=== PATIENT | female | born 1960 | race American Indian/Alaskan Native ===

== ENCOUNTER 2024-01-14 14:30 | Outpatient (RCR) | payer MEDICAID, SELFPAY ==
--- NOTE | 2023-12-25 15:11 | PT.OIERPT ---
PT OP Initial Eval Patient Information Outpatient Physical Therapy Treatment Date: 12/25/23 Visit Reasons: Pain in Right shoulder Medical Diagnosis: Right Shoulder Impingement Syndrome Treatment Dx #1: Right Shoulder Pain Treatment Dx #2: Right Shoulder Mobility Deficits Start of Care: 12/25/23 Smoking Status Smoking Status: Never smoker Initial Assessment Subjective: Pt is a 63 y/o female reports of chronic right shoulder pain (6/10) worsening in the past 6 months. Pt had some repair done by Dr Guajardo ~ 10 years ago after her injury. Most recent MRI negative. Pt has limitation with overhead motions, lifting, chores, self care, cooking, cleaning, and performing recreational activities Objective: Right Shoulder AROM Flexion: 140 deg Abduction: 150 deg External Rotation: 80 deg Internal Rotation: 60 deg Right Shoulder MMTs: grossly 3/5 Right Scapula MMTs: grossly 3/5 Special Test (+) aden-jonatan Assessment: Pt demonstrate right shoulder pain with mobility deficits consistent with impingement syndrome leading to difficulty with ADLs. 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 1) Increase right shoulder AROM WNL in 6 wks to be able to perform overhead motions 2) Increase right shoulder MMTs grossly to 4/5 in 6 wks to be able to perform recreational activities 3) Decrease shoulder pain to 2/10 in 6 wks to be able to perform lifting activities 4) Increase scapula MMTs grossly to 4-/5 in 6 wks to be able to perform self care activities 5) Indep with HEP Treatment Plan 1) Manual Therapy 2) Therapeutic Activities 3) Therapeutic Exercises 4) Modalities (ice, heat) Frequency and Duration: 2 x wk for 6 wks Certification Dates: 12/25/23 to 03/26/24 Procedure Charges OP PT Eval Mod Complex 30 minutes: Yes
--- NOTE | 2024-01-01 08:43 | PT.ODAYNRPT ---
PT Outpatient Daily Note OP Daily Note Outpatient Physical Therapy Treatment Date: 01/01/24 Visit Reasons: Pain in Right shoulder Subjective: Pt c/o shoulder pain and tightness Objective: Please see flow sheet for ther ex list. Assessment: Poor activity tolerance due to pt pain response. Plan: Assess response to treatment. Length of Time (minutes) of Treatment: 30 Minutes Procedure Charges Therapeutic Exercise 30 minutes: Yes
--- NOTE | 2024-01-07 14:32 | PT.ODAYNRPT ---
PT Outpatient Daily Note OP Daily Note Outpatient Physical Therapy Treatment Date: 01/07/24 Visit Reasons: Pain in Right shoulder Subjective: Pt's shoulder is fatigue and sore from previous session. Pt mention she continues to have weakness and pain in her shoulder blade Objective: Please see flow chart for list of ther ex performed Assessment: improving with shoulder AAROM in flexion and scaption direction. Post heat helped with shoulder pain Plan: Continue with PT Length of Time (minutes) of Treatment: 30 Minutes Procedure Charges Therapeutic Exercise 30 minutes: Yes
--- NOTE | 2024-01-10 14:35 | PT.ODAYNRPT ---
PT Outpatient Daily Note OP Daily Note Outpatient Physical Therapy Treatment Date: 01/10/24 Visit Reasons: Pain in Right shoulder Subjective: Pt's shoulder still hurt. Pt is having a bad day today due to other issues. Objective: Please see flow chart for list of ther ex performed Assessment: no change in shoulder pain post PT session. Post heat helped with pain. Plan: Continue with PT Length of Time (minutes) of Treatment: 30 Minutes Procedure Charges Therapeutic Exercise 30 minutes: Yes
--- NOTE | 2024-01-14 15:05 | PT.ODAYNRPT ---
PT Outpatient Daily Note OP Daily Note Outpatient Physical Therapy Treatment Date: 01/14/24 Visit Reasons: Pain in Right shoulder Subjective: Pt's shoulder is very sore and pain is about the same. No change in overall symptoms since last session Objective: Please see flow chart for list of ther ex performed Assessment: minimal change in pain and ROM post PT session. Plan: Continue with PT Length of Time (minutes) of Treatment: 30 Minutes Procedure Charges Therapeutic Exercise 30 minutes: Yes
== END 2024-01-19 23:59 | disposition home or self-care (01) ==
LOC: CPTX 14:30
PROVIDERS: PCP Orthopaedic Surgery; Referring Provider Orthopaedic Surgery; Visit Provider Orthopaedic Surgery
DX: M25.511 Pain in right shoulder (principal); G89.29 Other chronic pain
CPT/HCPCS: 97110; 97162

== ENCOUNTER 2024-01-24 10:00 | Outpatient (RCR) | payer MEDICAID, SELFPAY ==
--- NOTE | 2024-01-22 14:54 | PT.ODAYNRPT ---
PT Outpatient Daily Note OP Daily Note Outpatient Physical Therapy Treatment Date: 01/22/24 Visit Reasons: right shoulder pain Subjective: Pt's shoulder pain is the same and continues to hurt. Pt wants to follow up with surgeon on prior to deciding if she wants to continue PT. Objective: Please see flow chart for list of ther ex performed Assessment: encourage to perform exercises in therapy to prevent frozen shoulder. No pain improvement post PT session. Post heat continues to help pain short term Plan: Continue with PT Length of Time (minutes) of Treatment: 30 Minutes Procedure Charges Therapeutic Exercise 30 minutes: Yes
--- NOTE | 2024-01-24 11:51 | PT.ODS1RPT ---
PT OP Progress/Discharge Note Date of Service: 01/24/24 Progress Note/DC Note Progress Note/Discharge Note: DC Note Patient Information Visit Reasons: right shoulder pain Medical Diagnosis: Right Shoulder Impingement Treatment Dx #1: Right Shoulder Pain Service Continue Service or Discharge: Discharge Discharge Date: 01/24/24 Status Subjective: Pt's shoulder continues to hurt despite she can move her arm better. Due to pain Pt continues to have limitation with all ADLs. Pt will like to stop physical therapy and follow up with MD. Pt has other joints that are hurting where there are physical therapy orders. Objective: Right Shoulder AROM: all motions are WFL Right Shoulder MMTs: grossly 3+/5 Right Scapula MMTs: grossly 3+/5 Special Test (+) hawkin-jonatan Assessment: Pt demonstrate functional strength and mobility, however, no change in pain leading to difficulty with ADLs. Pt will no longer benefit from physical therapy due to plateau towards goals. Pt was instructed on HEP last session and educated to continue exercises to maintain overall mobility. Pt performed all exercises safely, thank you for your referrals. Plan: D/C home with HEP and follow up with PRN Procedure Charges Therapeutic Exercise 30 minutes: Yes
== END 2024-02-19 23:59 | disposition home or self-care (01) ==
LOC: CPTX 10:00
PROVIDERS: PCP Orthopaedic Surgery; Referring Provider Orthopaedic Surgery; Visit Provider Orthopaedic Surgery
DX: M25.511 Pain in right shoulder (principal); G89.29 Other chronic pain
CPT/HCPCS: 97110

== ENCOUNTER 2024-03-20 10:30 | Outpatient (RCR) | payer MEDICAID, SELFPAY ==
--- NOTE | 2024-03-12 11:12 | PTNOTE_ITS ---
PT OP Initial Eval Patient Information Outpatient Physical Therapy Treatment Date: 03/12/24 Visit Reasons: Lower back pain Medical Diagnosis: M54.16 Treatment Dx #1: Back Pain Start of Care: 03/12/24 Date of Onset: 6 months ago Smoking Status Smoking Status: Never smoker Initial Assessment Subjective: Pt is a 64 y/o female reports of chronic back pain (8/10) worsening ~ 6 months ago. Pt had back surgery a few years ago. Pt now notice intermittent pain down the legs. Pt has limitation with sitting, standing, chores, self care, walking, and performing recreational activities. Objective: L/S AROM: all motions are 75% towards end range with pain in all plane Hip PROM: all motions are WFL except IR Hip MMTs: grossly 3+/5 Muscle Length: Hs tightness Assessment: Pt demonstrate back pain with mobility deficits leading to difficulty with ADLs. Pt will attempt physical therapy if pain persist Pt will be refer back to provider if pain persist. 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
--- NOTE | 2024-03-20 13:25 | PT.ODAYNRPT ---
PT Outpatient Daily Note OP Daily Note Outpatient Physical Therapy Treatment Date: 03/20/24 Visit Reasons: Lower back pain Subjective: Pt's back is okay. Pt called surgeon's office for follow up appt. Pt's right hip feels tight. Objective: Please see flow chart for list of ther ex performed Assessment: instructed patient on glute stretch to helped with restriction reported. Pt performed stretch safely Plan: Continue with PT Length of Time (minutes) of Treatment: 30 Minutes Procedure Charges Therapeutic Exercise 30 minutes: Yes
== END 2024-03-21 23:59 | disposition home or self-care (01) ==
LOC: CPTX 10:30
PROVIDERS: PCP Physical Medicine & Rehabilitation Pain Medicine; Referring Provider Physical Medicine & Rehabilitation Pain Medicine; Visit Provider Physical Medicine & Rehabilitation Pain Medicine
DX: M54.16 Radiculopathy, lumbar region (principal); R26.2 Difficulty in walking, not elsewhere classified; G89.29 Other chronic pain
CPT/HCPCS: 97110; 97162

== ENCOUNTER 2024-04-11 10:00 | Outpatient (RCR) | payer MEDICAID, SELFPAY ==
--- NOTE | 2024-03-25 09:20 | PT.ODAYNRPT ---
PT Outpatient Daily Note OP Daily Note Outpatient Physical Therapy Treatment Date: 03/25/24 Visit Reasons: LOW BACK PAIN Subjective: Pt's back is okay feels about the same. Objective: Please see flow chart for list of ther ex performed Assessment: tolerate exercises with minimal pain; demonstrate improved L/S mobility post PT session Plan: Continue with PT Length of Time (minutes) of Treatment: 30 Minutes Procedure Charges Therapeutic Exercise 30 minutes: Yes
--- NOTE | 2024-03-27 09:30 | PT.ODAYNRPT ---
PT Outpatient Daily Note OP Daily Note Outpatient Physical Therapy Treatment Date: 03/27/24 Visit Reasons: LOW BACK PAIN Subjective: Pt's back is okay. Pt still wants to lay on heat today. Objective: Please see flow chart for list of ther ex performed Assessment: tolerate exercises with minimal pain Plan: Continue with PT Length of Time (minutes) of Treatment: 30 Minutes Procedure Charges Therapeutic Exercise 30 minutes: Yes
--- NOTE | 2024-04-01 13:34 | PT.ODAYNRPT ---
PT Outpatient Daily Note OP Daily Note Outpatient Physical Therapy Treatment Date: 04/01/24 Visit Reasons: LOW BACK PAIN Subjective: Pt reports low back pain is slowly progressing. Objective: Please see flow sheet for ther ex lsit. Assessment: Pt demonstrates good tolerance with intervention progression. Plan: Continue with POC. Length of Time (minutes) of Treatment: 30 Minutes Procedure Charges Therapeutic Exercise 30 minutes: Yes
--- NOTE | 2024-04-03 15:05 | PT.ODAYNRPT ---
PT Outpatient Daily Note OP Daily Note Outpatient Physical Therapy Treatment Date: 04/03/24 Visit Reasons: LOW BACK PAIN Subjective: Pt report low back is hurting more today than usual. Pt shared that she notices progress but still has days where the pain comes back. Objective: Please see flow sheet for ther ex list. Assessment: Regressed interventions to accommodate reported pain. Plan: Continue with POC. Length of Time (minutes) of Treatment: 30 Minutes Procedure Charges Therapeutic Exercise 30 minutes: Yes
--- NOTE | 2024-04-09 13:34 | PT.ODAYNRPT ---
PT Outpatient Daily Note OP Daily Note Outpatient Physical Therapy Treatment Date: 04/09/24 Visit Reasons: LOW BACK PAIN Subjective: Therapy has also been helping her mid back lately. Pt seen Dr Masterson and wants her to resume physical therapy for her neck soon. Objective: Please see flow chart for list of ther ex performed Assessment: progress patient to more seated and standing exercises with good tolerance Plan: Continue with PT Length of Time (minutes) of Treatment: 30 Minutes Procedure Charges Therapeutic Exercise 30 minutes: Yes
--- NOTE | 2024-04-11 12:45 | PT.ODAYNRPT ---
PT Outpatient Daily Note OP Daily Note Outpatient Physical Therapy Treatment Date: 04/11/24 Visit Reasons: LOW BACK PAIN Subjective: Pt's back is doing okay. Pt denies of intense pain. Objective: Please see flow chart for list of ther ex performed Assessment: tolerate exercises with minimal pain Plan: Continue with PT Length of Time (minutes) of Treatment: 30 Minutes Procedure Charges Therapeutic Exercise 30 minutes: Yes
== END 2024-04-18 23:59 | disposition home or self-care (01) ==
LOC: CPTX 10:00
PROVIDERS: PCP Physical Medicine & Rehabilitation Pain Medicine; Referring Provider Physical Medicine & Rehabilitation Pain Medicine; Visit Provider Physical Medicine & Rehabilitation Pain Medicine
DX: M25.511 Pain in right shoulder (principal); G89.29 Other chronic pain; M75.41 Impingement syndrome of right shoulder
CPT/HCPCS: 97110

== ENCOUNTER 2024-05-01 10:00 | Outpatient (RCR) | payer MEDICAID, SELFPAY ==
--- NOTE | 2024-04-22 11:52 | PT.ODAYNRPT ---
PT Outpatient Daily Note OP Daily Note Outpatient Physical Therapy Treatment Date: 04/22/24 Visit Reasons: Low back pain Subjective: Pt's back is better. Pt reports of blowing up? her right arm. Pt is pending surgery next month. Pt is unable to do any exercises that require her to use her arms. Objective: Please see flow chart for list of ther ex perfomed Assessment: all exercises that incorporate the arm was withheld due to reported arm pain. Pt tolerate all instructed exercises to day Plan: Continue with PT Length of Time (minutes) of Treatment: 30 Minutes Procedure Charges Therapeutic Exercise 30 minutes: Yes
--- NOTE | 2024-04-24 11:57 | PTNOTE_ITS ---
PT Outpatient Daily Note OP Daily Note Outpatient Physical Therapy Treatment Date: 04/24/24 Visit Reasons: Low back pain Subjective: Pt reports LBP continues to feel about the same, continues to have pain going down the leg. Objective: Please see flow sheet for ther ex list. Assessment: Progression with interventions slow in clinic ladonna to pt poor progress with sy mptom improvement response. Plan: Continue with POC. Length of Time (minutes) of Treatment: 30 Minutes Procedure Charges Therapeutic Exercise 30 minutes: Yes
--- NOTE | 2024-05-01 11:35 | PT.ODS1RPT ---
PT OP Progress/Discharge Note Date of Service: 05/01/24 Progress Note/DC Note Progress Note/Discharge Note: DC Note Patient Information Visit Reasons: Low back pain Medical Diagnosis: M54.16 Treatment Dx #1: Back Pain Service Continue Service or Discharge: Discharge Discharge Date: 05/01/24 Status Subjective: Pt's back still stiff and notice some pain intermittently. Pt mentioned she's going to have rotator cuff repair in the near future. Currently Pt has been able to stand, perform chores, walk, and ADLs with less limitation. Objective: L/S AROM: all motions are WFL Hip PROM: all motions are WFL Hip MMTs: grossly 4-/5 Assessment: Pt demonstrate functional L/S mobility and core strength allowing her to resume ADLs with less limitation. Pt will no longer benefit from physical therapy due to plateau towards goals. Pt was instructed on HEP last session and educated to continue exercises to maintain overall mobility. Pt performed all exercises safely, thank you for your referrals. Plan: D/C home with HEP and follow up with MD BUCKLEY Procedure Charges Therapeutic Exercise 30 minutes: Yes
== END 2024-05-19 23:59 | disposition home or self-care (01) ==
LOC: CPTX 10:00
PROVIDERS: PCP Physical Medicine & Rehabilitation Pain Medicine; Referring Provider Physical Medicine & Rehabilitation Pain Medicine; Visit Provider Physical Medicine & Rehabilitation Pain Medicine
DX: M25.511 Pain in right shoulder (principal); G89.29 Other chronic pain; M75.41 Impingement syndrome of right shoulder
CPT/HCPCS: 97110

== ENCOUNTER → 2024-06-25 | Outpatient (CLI) | payer MEDICAID, SELFPAY ==
--- NOTE | 2024-06-25 16:15 | XR_ITS ---
Examination: Ultrasound soft tissue right upper abdomen TECHNIQUE: Saha scale sonographic images soft tissue right upper abdomen Exam date and time: June 25, 2024 1616 hours INDICATIONS: Palpable lump upright abdomen note is beginning 3 months ago FINDINGS: No cystic or solid mass noted IMPRESSION: No cystic or solid mass noted Consider CT scan abdomen post intravenous contrast follow-up
== END | disposition home or self-care (01) ==
PROVIDERS: PCP Internal Medicine; Referring Provider Internal Medicine; Visit Provider Internal Medicine
DX: D17.1 Benign lipomatous neoplasm of skin and subcutaneous tissue of trunk (principal)
CPT/HCPCS: 76705

== ENCOUNTER 2024-07-17 08:30 | Outpatient (RCR) | payer MEDICAID, SELFPAY ==
--- NOTE | 2024-07-08 09:14 | PT.OIERPT ---
PT OP Initial Eval Patient Information Outpatient Physical Therapy Treatment Date: 07/08/24 Visit Reasons: CERVICAL RADICULOPATHY Medical Diagnosis: M54.12 Treatment Dx #1: Neck Pain Treatment Dx #2: BUE Weakness Start of Care: 07/08/24 Date of Onset: 1 year ago Smoking Status Smoking Status: Never smoker Initial Assessment Subjective: Pt is a 64 y/o female reports of chronic neck pain (08/28) with numbness and weakness withing her arms. Pt further reports of intermittent headache. No imaging has been done thus far. Pt has limitation with lifting, gripping, chores, self care, cooking cleaning, sleeping, and performing recreational activities. Objective: C/S AROM: all motions are WFL with end range pain into all plane BUE AROM: all motions are WFL BUE MMTs: grossly 3+/5 Scapula MMTs: grossly 3+/5 Palpation: TTP upper trape and levator scapulae tightness Assessment: Pt demonstrate neck pain with BUE weakness leading to difficulty with ADLs. Pt will benefit from physical therapy to increase ROM, strength, and work on flexibility. 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
--- NOTE | 2024-07-15 09:30 | PT.ODAYNRPT ---
PT Outpatient Daily Note OP Daily Note Outpatient Physical Therapy Treatment Date: 07/15/24 Visit Reasons: CERVICAL RADICULOPATHY Subjective: Pt reports neck is doing ok today. Objective: Please see flow sheet for ther ex list. Assessment: Performed STM and occipital release , pt tolerated well. Plan: Assess response to treatment. Length of Time (minutes) of Treatment: 30 Minutes Procedure Charges Therapeutic Exercise 30 minutes: Yes
--- NOTE | 2024-07-17 08:57 | PT.ODAYNRPT ---
PT Outpatient Daily Note OP Daily Note Outpatient Physical Therapy Treatment Date: 07/17/24 Visit Reasons: CERVICAL RADICULOPATHY Subjective: Pt's neck is much better. Pt also stated that she received a massage last night. Pt will like to try c/s traction today Objective: Please see flow chart for list of ther ex perfromed Assessment: minimal changes post c/s traction. Pt demonstrate improve upper trape and levator length post stretching with heat Plan: Continue with PT Length of Time (minutes) of Treatment: 30 Minutes Procedure Charges Traction Mechanical: Yes Therapeutic Exercise 15 minutes: Yes
== END 2024-07-19 23:59 | disposition home or self-care (01) ==
LOC: CPTX 08:30
PROVIDERS: PCP Physical Medicine & Rehabilitation Pain Medicine; Referring Provider Physical Medicine & Rehabilitation Pain Medicine; Visit Provider Physical Medicine & Rehabilitation Pain Medicine
DX: M54.12 Radiculopathy, cervical region (principal)
CPT/HCPCS: 97012; 97110; 97162

== ENCOUNTER 2024-08-13 13:30 | Outpatient (RCR) | payer MEDICAID, SELFPAY ==
--- NOTE | 2024-07-22 15:09 | PT.ODAYNRPT ---
PT Outpatient Daily Note OP Daily Note Outpatient Physical Therapy Treatment Date: 07/22/24 Visit Reasons: neck pain Subjective: Pt's neck feels okay. Pt does not have any new concerns. Pt likes the c/s traction and wants to use the unit again. Objective: Please see flow chart for list of ther ex performed Assessment: decrease neck pain post PT session. Pt demonstrate normal upper trape and levator scapulae muscle length; manual stretching discontinue Plan: Continue with PT Length of Time (minutes) of Treatment: 30 Minutes Procedure Charges Traction Mechanical: Yes Therapeutic Exercise 15 minutes: Yes
--- NOTE | 2024-07-31 15:51 | PT.ODAYNRPT ---
PT Outpatient Daily Note OP Daily Note Outpatient Physical Therapy Treatment Date: 07/31/24 Visit Reasons: neck pain Subjective: Pt reports neck is doing a little better today, shared that she had an appointment with her chiropractor few days ago. Objective: Please see flow sheet for ther ex list. Assessment: AROM UE exercises completed with muscle fatigue. Pt c/s rotation WNL as observed. Plan: Continue with POC. Length of Time (minutes) of Treatment: 30 Minutes Procedure Charges Therapeutic Exercise 30 minutes: Yes
--- NOTE | 2024-08-04 15:44 | PT.ODAYNRPT ---
PT Outpatient Daily Note OP Daily Note Outpatient Physical Therapy Treatment Date: 08/04/24 Visit Reasons: neck pain Subjective: Pt reports neck is painful and stiff today. Objective: Please see flow sheet for ther ex list. Assessment: Regressed interventions to accommodate reported pain. Plan: Continue with poC. Length of Time (minutes) of Treatment: 30 Minutes Procedure Charges Therapeutic Exercise 30 minutes: Yes
--- NOTE | 2024-08-11 15:54 | PT.ODAYNRPT ---
PT Outpatient Daily Note OP Daily Note Outpatient Physical Therapy Treatment Date: 08/11/24 Visit Reasons: neck pain Subjective: Pt reports neck feels about the same, will follow up with MD once she finishes PT. Objective: Please see flow sheet for ther ex list. Assessment: Pt demonstrates poor activity tolerance, no changes with symptoms delaying progression in clinic. Plan: Pt has one visit left, update HEP. Length of Time (minutes) of Treatment: 30 Minutes Procedure Charges Therapeutic Exercise 30 minutes: Yes
--- NOTE | 2024-08-13 14:15 | PT.ODAYNRPT ---
PT Outpatient Daily Note OP Daily Note Outpatient Physical Therapy Treatment Date: 08/13/24 Visit Reasons: neck pain Subjective: Pt reports neck feels about the same, progress is slow. Objective: Please see flow sheet for ther ex list. Assessment: Pt continues to reports pain and mentioned activities and some ADLs aggravate symptoms. Plan: Continue with pOC. Length of Time (minutes) of Treatment: 30 Minutes Procedure Charges Therapeutic Exercise 30 minutes: Yes
--- NOTE | 2024-09-05 09:53 | PT.ODS1RPT ---
PT OP Progress/Discharge Note Date of Service: 09/05/24 Progress Note/DC Note Progress Note/Discharge Note: DC Note Patient Information Visit Reasons: neck pain Medical Diagnosis: M54.12 Treatment Dx #1: Neck Pain Service Discharge Date: 09/05/24 Status Subjective: Pt mentioned minimal progress with her neck pain. Pt continues to have symptoms down her arms leading to difficulty with ADLs. At this time Pt will like to stop physical therapy and follow up with MD for further consultation. Objective: C/S AROM: all motions are WFL with pain in end range BUE AROM: all motions are WFL BUE MMTs: grossly 3+/5 Scapula MMTs: grossly 3+/5 Assessment: Pt demonstrate functional c/s mobility and strength, however, no change in pain or symptoms leading to difficulty with ADLs. Pt will no longer benefit from physical therapy due to minimal progression towards goals. Pt advised to follow up with MD for further consultation; thank you for your referrals Plan: D/C home and follow up with MD BUCKLEY
== END 2024-08-18 23:59 | disposition home or self-care (01) ==
LOC: CPTX 13:30
PROVIDERS: PCP Physical Medicine & Rehabilitation Pain Medicine; Referring Provider Physical Medicine & Rehabilitation Pain Medicine; Visit Provider Physical Medicine & Rehabilitation Pain Medicine
DX: M54.12 Radiculopathy, cervical region (principal)
CPT/HCPCS: 97012; 97110

== ENCOUNTER → 2024-11-10 | Outpatient (CLI) | payer MEDICAID, SELFPAY ==
--- NOTE | 2024-11-10 14:30 | XR_ITS ---
Examination: Screening digital mammography, bilateral Computer aided detection 3-D breast Tomosynthesis, bilateral Date and time of exam: November 10, 2024 1440 hours, compared to mammograms dating to December 24, 2017 Indication: Screening Technique: Nonmagnified MLO, CC views of the breasts to been obtained, reconstructed from 3-D Tomosynthesis images. R2 computer aided detection program utilized for evaluation of suspicious masses and/or abnormal calcifications. 3-D Tomosynthesis images obtained. Findings: The breasts are heterogeneously dense, which may obscure small masses Stable focal asymmetry upper right breast on the MLO view Benign calcifications. No interval suspicious masses Impression: BI-RADS category II: Benign Findings. Recommend 1 year follow-up mammogram.
== END | disposition home or self-care (01) ==
PROVIDERS: Referring Provider Physician Assistant; Visit Provider Physician Assistant
DX: Z12.31 Encounter for screening mammogram for malignant neoplasm of breast (principal); R92.323 Mammographic fibroglandular density, bilateral breasts; R92.1 Mammographic calcification found on diagnostic imaging of breast
CPT/HCPCS: 77063; 77067